=== PATIENT | female | born 1970 | race African-American/Black ===

== ENCOUNTER 2016-10-24 08:17 | Outpatient (CLI) | payer MEDICAID ==
[~2016-10-24 08:17] MED LIST: FERRIC CARBOXYMALTOSE 750 MG in NORMAL SALINE 250 ML IV PRN; NORMAL SALINE 250 ML IV PRN
[2016-10-24 08:53] VITALS: BP 126/76
== END 2016-10-24 09:30 | disposition home or self-care (01) ==
LOC: II 08:17 → 5TH 08:18 → II 09:30
PROVIDERS: ATTEND Internal Medicine
PROC: 3E033KZ Introduction of Other Diagnostic Substance into Peripheral Vein, Percutaneous Approach (ICD-10-PCS; principal; 2016-10-24)
DX: D50.9 Iron deficiency anemia, unspecified (principal); K90.9 Intestinal malabsorption, unspecified
CPT/HCPCS: 96365; J7050; J1439

== ENCOUNTER 2016-10-29 05:17 | Day surgery (SDC) | payer MEDICAID ==
[2016-10-25 11:06] LABS: HEMATOCRIT 34.6 % (36.0-47.0); HEMOGLOBIN 10.9 g/dL (12.0-15.5); HGB HCT DIFFERENCE -1.9; MEAN CORPUSCULAR HEMOGLOBIN 25.6 pg (27.0-33.4); MEAN CORPUSCULAR HGB CONC 31.5 g/dL (32.0-36.0); MEAN CORPUSCULAR VOLUME 81 fl (80-97); RED BLOOD COUNT 4.26 10^6/uL (3.72-5.28); RED CELL DISTRIBUTION WIDTH 17.4 % (11.5-14.0); WHITE BLOOD COUNT 6.2 10^3/uL (4.0-10.5)
[2016-10-25 11:14] LABS: APPEARANCE,URINE SLIGHTLY-CLOUDY; BILIRUBIN,URINE NEGATIVE (NEGATIVE); GLUCOSE, URINE NEGATIVE (NEGATIVE); KETONES,URINE NEGATIVE (NEGATIVE); LEUKOCYTE ESTERASE,URINE NEGATIVE (NEGATIVE); NITRITE,URINE NEGATIVE (NEGATIVE); PROTEIN,URINE NEGATIVE (NEGATIVE); URINE SPECIFIC GRAVITY 1.017; UROBILINOGEN,URINE NEGATIVE mg/dL (<2.0)
--- NOTE | 2016-10-25 11:15 | EKG REPORT ---
SEVERITY:- NORMAL ECG - SINUS RHYTHM : Confirmed by: Preet Escoto 25-Oct-2016 11:14:28
[2016-10-25 11:29] LABS: ALANINE AMINOTRANSFERASE 30 U/L (9-52); ALBUMIN 4.5 g/dL (3.5-5.0); ALKALINE PHOSPHATASE 81 U/L (38-126); ANION GAP 10 (5-19); ASPARTATE AMINO TRANSFERASE 19 U/L (14-36); BILIRUBIN,TOTAL 0.9 mg/dL (0.2-1.3); BLOOD UREA NITROGEN 11 mg/dL (7-20); CALCIUM 10.2 mg/dL (8.4-10.2); CARBON DIOXIDE 29 mmol/L (22-30); CHLORIDE 101 mmol/L (98-107); CREATININE RESULT 0.76 mg/dL (0.52-1.25); GLUCOSE 90 mg/dL (75-110); POTASSIUM 4.8 mmol/L (3.6-5.0); SODIUM 139.6 mmol/L (137-145); TOTAL PROTEIN 7.4 g/dL (6.3-8.2)
[~2016-10-29 05:17] MED LIST changes: +CLINDAMYCIN 900 MG/D5W RTU 50 ML IV PRN; -FERRIC CARBOXYMALTOSE 750 MG in NORMAL SALINE 250 ML IV PRN; +GENTAMICIN SULFATE 120 MG in DEXTROSE 5%-WATER 100 ML IV PRN; +LACTATED RINGERS 1000 ML IV PRN; +LIDOCAINE 0.5% INJ-PF (5 MG/ML) 50 ML SDV SUBCUT PRN; -NORMAL SALINE 250 ML IV PRN; +RINGERS SOLUTION,LACTATED 1,000 ML IV PRN
[2016-10-29] MEDS ORDERED: FENTANYL CITRATE INJ/PF 250 MCG/5 ML AMPULE ONE (06:44)
[2016-10-29] MEDS ORDERED: HYDROMORPHONE HCL INJ/PF 2 MG/ML AMPULE ONE (06:45)
[2016-10-29] MEDS ORDERED: MIDAZOLAM 2 MG/2 ML INJ ONE (06:45)
[2016-10-29] MEDS ORDERED: PROPOFOL INJ 200 MG/20 ML VIAL IV ONE (06:45)
[2016-10-29] MEDS ORDERED: PROMETHAZINE HCL INJ 25 MG/1 ML VIAL IV PRN ×2 (08:14)
[2016-10-29] MEDS ORDERED: DIPHENHYDRAMINE HCL 50 MG/ML VIAL IV PRN (08:14)
[2016-10-29] MEDS ORDERED: FENTANYL CITRATE INJ/PF 100 MCG/2 ML AMPUL IV PRN ×3 (08:14)
[2016-10-29] MEDS ORDERED: MORPHINE SULFATE 10 MG/ML INJ IV PRN ×2 (08:14→12:31)
[2016-10-29] MEDS ORDERED: MEPERIDINE HCL/PF INJ 25 MG/1 ML DISP.SYRIN IV PRN (08:14)
[2016-10-29] MEDS ORDERED: SUCCINYLCHOLINE CHLORIDE INJ 200 MG/10 ML VIAL ONE (09:15)
[2016-10-29] MEDS ORDERED: GLYCOPYRROLATE INJ 0.4 MG/2 ML VIAL ONE (09:15)
[2016-10-29] MEDS ORDERED: DEXAMETHASONE SOD PHOSPHATE INJ 4 MG/1 ML VIAL ONE (09:15)
[2016-10-29] MEDS ORDERED: VECURONIUM BROMIDE INJ 10 MG VIAL IV ONE (09:15)
[2016-10-29] MEDS ORDERED: METOCLOPRAMIDE HCL INJ/PF 10 MG/2 ML SDV ONE (09:15)
[2016-10-29] MEDS ORDERED: ONDANSETRON HCL INJ/PF 4 MG/2 ML SDV ONE (09:15)
[2016-10-29] MEDS ORDERED: NEOSTIGMINE METHYLSULFATE 10 MG/10 ML VIAL ONE (09:15)
[2016-10-29] MEDS ORDERED: LIDOCAINE 2% INJ-PF (20 MG/ML) 10 ML AMPUL ONE (09:15)
--- NOTE | 2016-10-29 11:33 | OPERATIVE REPORT E ---
Operative Report NAME: NATHALIA GUTIERREZ : 1970 AGE: 46Y DATE OF SURGERY: 10/29/2016 ROOM: PREOPERATIVE DIAGNOSES: 1. Abnormal uterine bleeding. 2. Anemia. 3. Symptomatic fibroids. 4. Chronic pelvic pain. POSTOPERATIVE DIAGNOSES: 1. Abnormal uterine bleeding. 2. Anemia. 3. Symptomatic fibroids. 4. Chronic pelvic pain. 5. Pelvic adhesive disease. OPERATION: Robotic-assisted total laparoscopic hysterectomy with bilateral salpingo-oophorectomy and lysis of adhesions. SURGEON: USMAN HARRELL M.D. GRAINING OPERATOR: Elma Velazquez, nurse first assist student. FINDINGS: A 20-week sized uterus that weighed approximately 380 grams. Multiple omental adhesions to the anterior side of the uterus. Thick uterosacral ligaments. Adhered ovaries more on the left than on the right. Fallopian tubes were both adhered as well. ESTIMATED BLOOD LOSS: 300 mL which were returned via Cell Saver. TISSUE REMOVED OR ALTERED: Specimens removed was the uterus, cervix, and bilateral fallopian tubes. PROCEDURE IN DETAIL: The patient was taken to the operating room, prepared and draped in a normal sterile fashion in dorsal lithotomy position in [facility] under sterile conditions. A sterile Matamoros was placed to gravity, and sterile speculum was then placed in the vagina. The cervix was prepped with Betadine and grasped on the anterior lip with a single-tooth tenaculum. The uterus was then sounded and dilated to accommodate a large VCare. This was placed without difficulty for uterine manipulation. The tenaculum was removed from the vagina before gloves were changed. Attention was then turned to the upper portion of the case. A skin incision was made approximately 2 cm above the umbilicus to accommodate the GelPoint, and a direct cutdown method was used to enter the peritoneal cavity without difficulty. The GelPoint was then placed in a normal fashion, and the camera port and air seal community relations assistant port was placed through the GelPoint. The camera was introduced, and under direct visualization two 5 mm ports were placed approximately 10 cm on either side of the umbilicus. The robot was docked. The monopolar scissors and the vessel sealer were placed in a normal fashion. The bowel was swept away using careful use of the instruments. The omentum was then dissected from the anterior side of the uterus using the monopolar scissors as needed. Once the ovary was able to be visualized and the fallopian tube was able to be visualized after extensive lysis of adhesions of the left pelvic sidewall, the fallopian tube was then removed using the vessel sealer and the monopolar scissors in conjunction. This was removed from the pelvis through the community relations assistant port. The utero-ovarian ligament was then transected using the vessel sealer until we reached the round ligament. The round ligament was transected as well, and the uterine arteries were transected with the vessel sealer until we could see the bladder reflection. We then repeated on the right portion of the uterus, removing the fallopian tube in a similar fashion and again dissecting the utero-ovarian ligament and the round ligament as well and transecting the uterine arteries using the vessel sealer. The monopolar scissors were used to create the bladder flap, and the bladder was carefully dissected away from the cervix and the lower uterine segment. The uterine arteries were continually coagulated and transected using the vessel sealer until the VCare could be located through the vaginal mucosa beginning on the anterior side as this was presenting itself most readily. The colpotomy was begun using the monopolar scissors and circumferentially transected using the monopolar cervix all the way around the cervix until the specimen was freed. With the specimen being large, we began some bivalving of the uterus using the monopolar scissors down the center of the uterus to help with compression effect with vaginal removal. Once this was completed, I then re-gloved using a sterile pair of gloves and assisting my community relations assistant with removal of the uterus through the vagina, and this was done with some difficulty but was able to remove using some careful manipulations of the uterus without complete bivalve. I then scrubbed again and reset back to the console and closed the vaginal cuff using a V-lock and the Hollis needle jitney driver as well as a Prograf. Hemostasis was maintained throughout with coagulation as needed. The peritoneal cavity was reinspected and found to be hemostatic. The ureters were inspected at the beginning of the case and again at this time and found to be peristalsing with no signs of hydroureter noted. Another copious irrigation and inspection of the peritoneal cavity left us feeling we were hemostatic and the ureters were well intact. The robot was undocked, and the trocars were removed under direct visualization. The GelPoint was removed. In the GelPoint incision site the fascia was closed with #0-Vicryl in a running manner. The subcutaneous layer was also closed with a plain catgut to close the space and all 3 incision sites were closed with 4-0 Vicryl. The patient tolerated the procedure well. Sponge, lap, and needle counts were correct x2. The Matamoros catheter was removed in the OR, and she was taken to PACU in stable condition. DICTATING PHYSICIAN: USMAN HARRELL M.D. [id number] PHY#: [id number] ID: [id number] JOB#: [id number] ACCT: [id number] cc:USMAN HARRELL M.D. >
[2016-10-29] MEDS ORDERED: RINGERS SOLUTION,LACTATED 1,000 ML IV PRN (12:32)
[2016-10-29] MEDS ORDERED: OXYCODONE-ACETAMINOPHEN 5-325 MG TABLET PO PRN (12:38)
[2016-10-29] MEDS ORDERED: MORPHINE SULFATE 10 MG/ML INJ ONE (12:52)
[2016-10-29] MEDS ORDERED: ACETAMINOPHEN 100 ML IV ONE (14:00)
[2016-10-29] MEDS: KETOROLAC TROMETHAMINE INJ/PF 30 MG/1 ML SDV IV SCH ×2 (14:20→21:21)
[2016-10-29 21:29] LABS: HEMATOCRIT 30.3 % (36.0-47.0); HEMOGLOBIN 9.2 g/dL (12.0-15.5); HGB HCT DIFFERENCE -2.7; MEAN CORPUSCULAR HEMOGLOBIN 24.9 pg (27.0-33.4); MEAN CORPUSCULAR HGB CONC 30.3 g/dL (32.0-36.0); MEAN CORPUSCULAR VOLUME 82 fl (80-97); RED BLOOD COUNT 3.69 10^6/uL (3.72-5.28); RED CELL DISTRIBUTION WIDTH 18.1 % (11.5-14.0); WHITE BLOOD COUNT 14.5 10^3/uL (4.0-10.5)
[2016-10-29] MEDS ORDERED: NORMAL SALINE 1000 ML 1,000 ML IV ONE (21:45)
[2016-10-29] MEDS ORDERED: ACETAMINOPHEN 325 MG TABLET PO ONE (21:45)
[2016-10-29 21:47] LABS: BASOPHILS % (MANUAL) 0 % (0-2); EOSINOPHILS % (MANUAL) 0 % (0-6); LYMPHOCYTES % (MANUAL) 1 % (13-45); TOTAL CELLS COUNTED 100
[2016-10-29 21:50] LABS: ANISOCYTOSIS 1+; OVALOCYTES SLIGHT; POIKILOCYTOSIS SLIGHT
[2016-10-29] MEDS ORDERED: AMPICILLIN SOD/SULBACTAM 3 GM VIAL IV PRN (22:54)
[2016-10-29] MEDS ORDERED: AMPICILLIN SODIUM/SULBACTAM NA 3 GM in NORMAL SALINE 100 ML IV ONE (23:00)
[2016-10-29] MEDS ORDERED: CLINDAMYCIN 900 MG/D5W RTU 50 ML IV SCH (23:45)
[2016-10-30 05:38] LABS: HEMATOCRIT 27.5 % (36.0-47.0); HEMOGLOBIN 8.7 g/dL (12.0-15.5); HGB HCT DIFFERENCE -1.4; MEAN CORPUSCULAR HEMOGLOBIN 25.9 pg (27.0-33.4); MEAN CORPUSCULAR HGB CONC 31.6 g/dL (32.0-36.0); MEAN CORPUSCULAR VOLUME 82 fl (80-97); RED BLOOD COUNT 3.36 10^6/uL (3.72-5.28); RED CELL DISTRIBUTION WIDTH 18.3 % (11.5-14.0); WHITE BLOOD COUNT 13.8 10^3/uL (4.0-10.5)
[2016-10-30] MEDS ORDERED: AMPICILLIN SODIUM/SULBACTAM NA 3 GM in NORMAL SALINE 100 ML IV SCH (06:00)
[2016-10-30] MEDS ORDERED: CLINDAMYCIN 900 MG/D5W RTU 50 ML IV SCH (06:00)
[2016-10-30] MEDS ORDERED: INFLUENZA ADLT QUAD (36MOS+) 2016-17 VAC 0.5 ML SYR IM PRN (06:32)
[2016-10-30] MEDS: KETOROLAC TROMETHAMINE INJ/PF 30 MG/1 ML SDV IV SCH (06:44)
[2016-10-30] MEDS ORDERED: RINGERS SOLUTION,LACTATED 1,000 ML IV PRN (07:40)
[2016-10-30 08:32] VITALS: BP 114/66
--- NOTE | 2016-10-30 09:11 | PDOC DISCHARGE SUMMARY ---
General - Admit/Disc Date/PCP Admission Date/Primary Care Provider: JEISON GAUTAM MD Discharge Date: 10/30/16 - Discharge Diagnosis (1) Abnormal uterine bleeding Is this a current diagnosis for this admission?: Yes (2) Pelvic adhesive disease Is this a current diagnosis for this admission?: Yes (3) Anemia Is this a current diagnosis for this admission?: Yes (4) Leiomyoma of body of uterus Is this a current diagnosis for this admission?: Yes - Additional Information Home Medications: Ferrous Sulfate [Iron] 325 mg PO TID 03/24/15 Multivitamin [Multivitamins] 1 tab PO DAILY 03/24/15 Medroxyprogesterone Acet [Provera 10 Mg Tablet] 10 mg PO DAILY 7 Days 08/08/16 Metronidazole 500 mg PO BID 7 Days 08/08/16 Hydrocodone Bit/Acetaminophen [Hydrocodon-Acetaminophen 5-325] 1 each PO Q4HP PRN #15 tablet 08/15/16 History of Present Illness History of Present Illness: NATHALIA GUTIERREZ is a 46 year old female Hospital Course Hospital Course: s/p RATLH w/ B/L salpingectomy and lysis of adhesions. Doing well. Indicates she feels much better. Has had adequate UOP. Tolerating regular diet Physical Exam - Physical Exam Vital Signs: Temp Pulse Resp BP Pulse Ox 98.6 F 98 18 114/66 100 10/30/16 08:22 10/30/16 08:22 10/30/16 08:22 10/30/16 08:22 10/30/16 08:22 Intake & Output 10/29/16 10/30/16 10/31/16 06:59 06:59 06:59 Intake Total 0 3530 Output Total 2500 Balance 0 1030 General appearance: PRESENT: no acute distress, cooperative GI/Abdominal exam: PRESENT: normal bowel sounds, soft, other - incisions c/d/ intact and healing well Extremities exam: PRESENT: full ROM Musculoskeletal exam: PRESENT: ambulatory Result Laboratory Results: 10/30/16 05:24 10/25/16 10:24 10/29/16 10/30/16 21:11 05:24 WBC 14.5 H 13.8 H RBC 3.69 L 3.36 L Hgb 9.2 L 8.7 L Hct 30.3 L 27.5 L MCV 82 82 MCH 24.9 L 25.9 L MCHC 30.3 L 31.6 L RDW 18.1 H 18.3 H Plt Count 275 238 Seg Neutrophils % Not Reportable Lymphocytes % Not Reportable Monocytes % Not Reportable Eosinophils % Not Reportable Basophils % Not Reportable Absolute Neutrophils Not Reportable Absolute Lymphocytes Not Reportable Absolute Monocytes Not Reportable Absolute Eosinophils Not Reportable Absolute Basophils Not Reportable Plan Discharge Plan: discharge home. strict precautions given for post operative care. keep f/u with Dr. Hadley as scheduled Time Spent: Less than 30 Minutes
[2016-10-30] MEDS ORDERED: IBUPROFEN 800 MG TABLET PO PRN (12:00)
== END 2016-10-30 10:05 | disposition home or self-care (01) ==
LOC: OROUT 05:17 → 2N 12:44 → OROUT 10-30 10:05
PROVIDERS: ATTEND Obstetrics & Gynecology
PROC: 0UTC4ZZ Resection of Cervix, Percutaneous Endoscopic Approach (ICD-10-PCS; 2016-10-29)
PROC: 0UT74ZZ Resection of Bilateral Fallopian Tubes, Percutaneous Endoscopic Approach (ICD-10-PCS; 2016-10-29)
PROC: 8E0W4CZ Robotic Assisted Procedure of Trunk Region, Percutaneous Endoscopic Approach (ICD-10-PCS; 2016-10-29)
PROC: 0UT94ZZ Resection of Uterus, Percutaneous Endoscopic Approach (ICD-10-PCS; principal; 2016-10-29 07:30)
DX: N93.8 Other specified abnormal uterine and vaginal bleeding (principal); K66.0 Peritoneal adhesions (postprocedural) (postinfection); D25.9 Leiomyoma of uterus, unspecified; G89.29 Other chronic pain; D64.9 Anemia, unspecified; R10.2 Pelvic and perineal pain; R01.1 Cardiac murmur, unspecified; Z88.0 Allergy status to penicillin; Z79.1 Long term (current) use of non-steroidal anti-inflammatories (NSAID); Z79.899 Other long term (current) drug therapy
CPT/HCPCS: 58573; S2900; 36415; 80053; 81001; 81025; 840; 85025; 85027; 86850; 86900; 86901; 88307; 93005; 93010; J0131; J0330; J1100; J1170; J1580; J1885; J2250; J2270; J2405; J2704; J2765; J3010; J3490; J7030

== ENCOUNTER 2016-11-02 08:06 | Outpatient (CLI) | payer MEDICAID ==
[~2016-11-02 08:06] MED LIST changes: -CLINDAMYCIN 900 MG/D5W RTU 50 ML IV PRN; +FERRIC CARBOXYMALTOSE 750 MG in NORMAL SALINE 250 ML IV PRN; -GENTAMICIN SULFATE 120 MG in DEXTROSE 5%-WATER 100 ML IV PRN; -LACTATED RINGERS 1000 ML IV PRN; -LIDOCAINE 0.5% INJ-PF (5 MG/ML) 50 ML SDV SUBCUT PRN; +NORMAL SALINE 250 ML IV PRN; -RINGERS SOLUTION,LACTATED 1,000 ML IV PRN
[2016-11-02] MEDS ORDERED: DIPHENHYDRAMINE HCL 50 MG/ML VIAL ONE (09:13)
[2016-11-02 09:51] VITALS: BP 130/77
== END 2016-11-02 10:15 | disposition home or self-care (01) ==
LOC: II 08:06 → 5TH 08:07 → II 10:15
PROVIDERS: ATTEND Internal Medicine
PROC: 3E033GC Introduction of Other Therapeutic Substance into Peripheral Vein, Percutaneous Approach (ICD-10-PCS; principal; 2016-11-02)
DX: D50.9 Iron deficiency anemia, unspecified (principal); K90.9 Intestinal malabsorption, unspecified
CPT/HCPCS: 96365; J1200; J7050; J1439

== ENCOUNTER 2016-11-05 16:18 | Emergency (ER) | payer MEDICAID ==
--- NOTE | 2016-11-05 17:35 | ER Document Report ---
ED Medical Screen (RME) - General Chief Complaint: Fever Stated Complaint: ABDOMINAL PAIN/FEVER Mode of Arrival: Ambulatory Information source: Patient Notes: 46-year-old female presents to the emergency department complaining of chills and lower abdominal pain over the last 2 days. Reports had hysterectomy 1 week ago. Denies vaginal bleeding or discharge I have greeted and performed a rapid initial assessment of this patient. A comprehensive ED assessment and evaluation of the patient, analysis of test results and completion of the medical decision making process will be conducted by additional ED providers. TRAVEL OUTSIDE OF THE [place] IN LAST 30 DAYS: No - Related Data Allergies/Adverse Reactions: Penicillins Allergy (Severe, Verified 11/05/16 17:17) Hives ferric carboxymaltose [From Injectafer] Allergy (Mild, Verified 11/05/16 17:17) chest tightness iron dextran complex Adverse Reaction (Mild, Verified 11/05/16 17:17) Past Medical History - Social History Chew tobacco use (# tins/day): No Frequency of alcohol use: Occasional Drug Abuse: None - Past Medical History Cardiac Medical History: Denies: Hx Coronary Artery Disease, Hx Heart Attack, Hx Hypertension Pulmonary Medical History: Denies: Hx Asthma, Hx Bronchitis, Hx COPD, Hx Pneumonia Neurological Medical History: Denies: Hx Cerebrovascular Accident, Hx Seizures Renal/ Medical History: Reports: Hx Ovarian Cysts. Denies: Hx Peritoneal Dialysis GI Medical History: Reports: Hx Gastroesophageal Reflux Disease, Hx Colonoscopy Past Surgical History: Reports: Hx Dilation and Curettage, Hx Gynecologic Surgery - Uterine polyps removed - Immunizations Hx Diphtheria, Pertussis, Tetanus Vaccination: Yes Physical Exam - Vital signs Vitals: Temp Pulse Resp BP Pulse Ox 99.5 F 118 H 16 141/77 H 98 11/05/16 17:14 11/05/16 17:14 11/05/16 17:14 11/05/16 17:14 11/05/16 17:14 - General General appearance: Appears well, Alert In distress: None - Respiratory Respiratory status: No respiratory distress Course - Vital Signs Vital signs: Temp Pulse Resp BP Pulse Ox 99.5 F 118 H 16 141/77 H 98 11/05/16 17:14 11/05/16 17:14 11/05/16 17:14 11/05/16 17:14 11/05/16 17:14
[2016-11-05 17:51] LABS: ABSOLUTE LYMPHOCYTES (AUTO) 1.4 10^3/uL (0.5-4.7); ABSOLUTE MONOCYTES (AUTO) 1.9 10^3/uL (0.1-1.4); ABSOLUTE NEUT (AUTO) 13.2 10^3/uL (1.7-8.2); APPEARANCE,URINE SLIGHTLY-CLOUDY; BASOPHILS % (AUTO) 0.2 % (0-2); BILIRUBIN,URINE NEGATIVE (NEGATIVE); EOSINOPHILS % (AUTO) 0.2 % (0-6); GLUCOSE, URINE NEGATIVE (NEGATIVE); HEMATOCRIT 31.4 % (36.0-47.0); HEMOGLOBIN 9.8 g/dL (12.0-15.5); KETONES,URINE NEGATIVE (NEGATIVE); LEUKOCYTE ESTERASE,URINE NEGATIVE (NEGATIVE); LYMPHOCYTES % (AUTO) 8.3 % (13-45); MEAN CORPUSCULAR HEMOGLOBIN 25.6 pg (27.0-33.4); MEAN CORPUSCULAR VOLUME 83 fl (80-97); MONOCYTES % (AUTO) 11.3 % (3-13); NITRITE,URINE NEGATIVE (NEGATIVE); PROTEIN,URINE NEGATIVE (NEGATIVE); RED BLOOD COUNT 3.81 10^6/uL (3.72-5.28); RED CELL DISTRIBUTION WIDTH 19.5 % (11.5-14.0); URINE SPECIFIC GRAVITY 1.015; WHITE BLOOD COUNT 16.5 10^3/uL (4.0-10.5)
[2016-11-05 18:01] LABS: ALANINE AMINOTRANSFERASE 27 U/L (9-52); ALKALINE PHOSPHATASE 81 U/L (38-126); ANION GAP 14 (5-19); ASPARTATE AMINO TRANSFERASE 19 U/L (14-36); BILIRUBIN,TOTAL 1.3 mg/dL (0.2-1.3); BLOOD UREA NITROGEN 7 mg/dL (7-20); CALCIUM 9.3 mg/dL (8.4-10.2); CARBON DIOXIDE 26 mmol/L (22-30); CHLORIDE 98 mmol/L (98-107); CREATININE RESULT 0.74 mg/dL (0.52-1.25); GLUCOSE 105 mg/dL (75-110); POTASSIUM 4.2 mmol/L (3.6-5.0); SODIUM 137.8 mmol/L (137-145); TOTAL PROTEIN 7.1 g/dL (6.3-8.2)
[2016-11-05] MEDS ORDERED: NORMAL SALINE 1000 ML 1,000 ML IV ONE (19:02)
--- NOTE | 2016-11-05 19:13 | ER Document Report ---
ED General <NATALIA LLAMAS - Last Filed: 11/05/16 21:40> - General Mode of Arrival: Ambulatory Information source: Patient TRAVEL OUTSIDE OF THE [place] IN LAST 30 DAYS: No - HPI Patient complains to provider of: Fever and Body Aches Onset: Yesterday Associated symptoms: Other - see above <VIJAY GAUTAM - Last Filed: 11/05/16 21:45> - General Chief Complaint: Fever Stated Complaint: ABDOMINAL PAIN/FEVER Notes: 46 year old female with history of a hysterectomy (10/29/2016; secondary to heavy menses) presents to the ED complaining of a fever (100.9F) and generalized body aches that started last night. Patient additionally reports of a cough, sneezing, chills, diarrhea, and a decreased appetite. Patient denies dysuria, burning with urination, or hematuria. Patient states that she has been trying to move more since the surgery and is attributing the body ache to this. Patient is currently on 5mg of Percocet and Clindamycin. Patient also reports taking stool softeners. Patient denies history of pneumonia or getting the flu shot. Patient's OB is Dr. Harrell. (VIJAY GAUTAM) - Related Data Allergies/Adverse Reactions: Penicillins Allergy (Severe, Verified 11/05/16 17:17) Hives ferric carboxymaltose [From Injectafer] Allergy (Mild, Verified 11/05/16 17:17) chest tightness iron dextran complex Adverse Reaction (Mild, Verified 11/05/16 17:17) Past Medical History - General Information source: Patient - Social History Smoking Status: Never Smoker Chew tobacco use (# tins/day): No Frequency of alcohol use: Occasional Drug Abuse: None Family History: Other - Mother with DVT. Patient has suicidal ideation: No Patient has homicidal ideation: No Renal/ Medical History: Reports: Hx Kidney Stones, Hx Ovarian Cysts. Denies: Hx Peritoneal Dialysis GI Medical History: Reports: Hx Gastroesophageal Reflux Disease, Hx Colonoscopy Past Surgical History: Reports: Hx Dilation and Curettage, Hx Genitourinary Surgery - D&C, Hx Gynecologic Surgery - Uterine polyps removed, Hx Hysterectomy - 10/29/2016 - Immunizations Hx Diphtheria, Pertussis, Tetanus Vaccination: Yes <VIJAY GAUTAM - Last Filed: 11/05/16 21:45> Review of Systems - Review of Systems Constitutional: See HPI, Chills, Fever - 100.9F EENT: No symptoms reported Cardiovascular: No symptoms reported Respiratory: No symptoms reported Gastrointestinal: See HPI, Diarrhea, Poor appetite Genitourinary: No symptoms reported. denies: Burning, Dysuria, Hematuria Female Genitourinary: No symptoms reported Musculoskeletal: No symptoms reported Skin: No symptoms reported Hematologic/Lymphatic: No symptoms reported Neurological/Psychological: No symptoms reported -: Yes All other systems reviewed and negative <VIJAY GAUTAM - Last Filed: 11/05/16 21:45> Physical Exam <NATALIA LLAMAS - Last Filed: 11/05/16 21:40> - Vital signs Interpretation: Tachycardic - mild - General General appearance: Alert In distress: None - HEENT Head: Normocephalic, Atraumatic Eyes: Normal Extraocular movements intact: Yes Pupils: PERRL - Respiratory Respiratory status: No respiratory distress Breath sounds: Normal - Cardiovascular Rhythm: Regular, Tachycardia Heart sounds: Normal auscultation - Abdominal Inspection: Normal, Healed incision Distension: No distension Bowel sounds: Normal Tenderness: Nontender - Back Back: Normal - Extremities General upper extremity: Normal inspection, Normal ROM General lower extremity: Normal inspection, Normal ROM - Neurological Neuro grossly intact: Yes Cognition: Normal Orientation: AAOx4 [place] Coma Scale Eye Opening: Spontaneous [place] Coma Scale Verbal: Oriented [place] Coma Scale Motor: Obeys Commands [place] Coma Scale Total: 15 Speech: Normal - Psychological Associated symptoms: Normal affect, Normal mood - Skin Skin Temperature: Warm Skin Moisture: Dry Skin Color: Normal <VIJAY GAUTAM - Last Filed: 11/05/16 21:45> - Vital signs Vitals: Temp Pulse Resp BP Pulse Ox 99.5 F 118 H 16 141/77 H 98 11/05/16 17:14 11/05/16 17:14 11/05/16 17:14 11/05/16 17:14 11/05/16 17:14 (NATALIA LLAMAS) (VIJAY GAUTAM) Course - Laboratory Result Diagrams: 11/05/16 17:30 11/05/16 17:30 <NATALIA LLAMAS - Last Filed: 11/05/16 21:40> - Laboratory Result Diagrams: 11/05/16 17:30 11/05/16 17:30 - Consults Dr. Harrell Time consulted: 21:36 <VIJAY GAUTAM - Last Filed: 11/05/16 21:45> - Re-evaluation Re-evalutation: 11/05/16 21:38 I personally performed the services described in the documentation, reviewed and edited the documentation which was dictated to my scribe in my presence, and it accurately records my words and actions. presents to the emergency department with a chief complaint of body aches chills and fever of 100.9 at home. Patient is status post partial abdominal hysterectomy Dr. Harrell last Saturday secondary to heavy menses. Ovaries were left according to the patient for the past day or so she's Been feeling achy little bit of a mild nonproductive cough MAXIMUM TEMPERATURE at home of 100.9. She has been taking the Percocet every 6 hours and clindamycin. She reports somewhat normal appetite but has had a little bit of diarrhea. On initial examination temperature is 99.5 orally she slightly tachycardic at 118 well- appearing nontoxic in no acute distress. HEENT is normal heart lungs are negative wound is clean dry and intact with no palpable tenderness drainage from the incision belly soft no guarding rebound or rigidity on serial abdominal examination. Chest x-ray is negative for acute pneumonia no urinary tract infection negative for the flu does have a slightly elevated white count at 16.5. Patient is well-appearing nontoxic stable to be discharged at this time. I did call her TECHNICAL REP physician that did her hysterectomy Dr. Harrell spoke with her wasn't anything additional she wanted me to do at this point other than have her follow-up in the office this week and discussed significant reasons for ED return sooner. Baseline anemia and is a Jehovah witness so did not want blood after surgery according to Dr. Harrell (NATALIA LLAMAS) - Vital Signs Vital signs: Temp Pulse Resp BP Pulse Ox 99.5 F 121 H 22 H 141/77 H 99 11/05/16 17:14 11/05/16 19:06 11/05/16 19:06 11/05/16 17:14 11/05/16 19:06 (NATALIA LLAMAS) (VIJAY GAUTAM) - Laboratory Laboratory results interpreted by me: 11/05/16 11/05/16 17:30 17:30 WBC 16.5 H Hgb 9.8 L Hct 31.4 L MCH 25.6 L MCHC 31.0 L RDW 19.5 H Seg Neutrophils % 80.0 H Lymphocytes % 8.3 L Absolute Neutrophils 13.2 H Absolute Monocytes 1.9 H Urine Urobilinogen 2.0 H Urine Ascorbic Acid 40 H (NATALIA LLAMAS) (VIJAY GAUTAM) - Consults Dr. Harrell Reason for consultation: 11/05/16 21:36 Patient was discussed with Dr. Harrell and agrees to see the patient in the clinic later this week. (VIJAY GAUTAM) Discharge <NATALIA LLAMAS - Last Filed: 11/05/16 21:40> <VIJAY GAUTAM - Last Filed: 11/05/16 21:45> - Discharge Clinical Impression: post op hysterectomy Diarrhea Qualifiers: Diarrhea type: unspecified type Qualified Code(s): R19.7 - Diarrhea, unspecified Condition: Stable Disposition: HOME, SELF-CARE Additional Instructions: Fever Fever is the body's reaction to infection. Fever can also occur with illnesses that create fever-producing substances in the body. By itself, fever is not harmful. It helps the body fight invading germs. We are more concerned with: (1) What's causing the fever? (2) How can we keep you more comfortable until the fever goes away? Early in an illness, symptoms are often so vague that a diagnosis can't be made. If the doctor hasn't identified a clear cause for your fever, you will probably develop new symptoms within the next two days. Contact the doctor if you develop severe worsening headache, rash, chest pain, cough with yellow or green sputum, difficulty breathing, abdominal pain, or other new symptoms. There is no reason to treat a fever if you're comfortable. If the fever is causing aches, headache, and fatigue, you can treat it with ibuprofen (Advil , Nuprin, etc) or acetaminophen (Tylenol). Follow the directions on the bottle. Get plenty of liquids (three quarts per day). Rest. Physical work or sports will raise the temperature higher and make you feel much worse. Dress lightly. If you're chilling, this means the temperature is trying to go higher. Take ibuprofen or acetaminophen. When you feel sweaty and "feverish" the temperature is coming down. If the fever doesn't go away within two days or if you become more ill, call the doctor or return at once for re-examination. Diarrhea Diarrhea means frequent, watery stools. There are many causes. Any problem that keeps the intestinal tract from absorbing water from the stool can lead to diarrhea. A sudden new diarrhea problem is usually caused by a virus, food sensitivity, toxic bacteria, or drugs. In this case, we expect the problem to go away soon. Testing is done only if you seem seriously ill from the diarrhea. If you have chronic diarrhea, or diarrhea that keeps coming back, we need to find out why. Chronic diarrhea can be due to inflammation of the bowels such as Crohn's disease or ulcerative colitis, food sensitivity such as intolerance to lactose or wheat protein, irritable bowel syndrome, and other problems. If your diarrhea is a significant problem but it's not clear why you have it, we' ll refer you to a specialist for further testing. During an episode of diarrhea, drink small amounts (two to six ounces) of clear liquids (soft drinks, sport drinks, herb teas, broth, etc). Take fluids frequently to prevent dehydration. It's usually not a problem to take mild anti- diarrhea medication such as Kaopectate or Pepto-Bismol. As the diarrhea eases, advance to small amounts of bland food (mashed potato, toast) for 24 hours. Call the physician if blood appears in your vomit or stool, if vomiting lasts longer than 24 hours, if the abdominal pain worsens or becomes localized to one area, if you develop high fever, or if you become lightheaded and weak. Referrals: JEISON GAUTAM MD [Primary Care Provider] - Follow up as needed (In 2-3 days return for increasing worsening or new symptoms) USMAN HARRELL MD [ACTIVE STAFF] - Follow up in 3-5 days (Postop follow-up this week return for increasing worsening or new symptoms) Scribe Documentation - Scribe Written by Josseline:: Josseline Wakefield, 11/05/[id number] acting as scribe for :: Torey <VIJAY GAUTAM - Last Filed: 11/05/16 21:45>
[2016-11-05 21:54] VITALS: BP 144/79
== END 2016-11-05 21:58 | disposition home or self-care (01) ==
LOC: ER 16:18
DX: R19.7 Diarrhea, unspecified (principal); R50.9 Fever, unspecified; R10.9 Unspecified abdominal pain; R05 Cough; R06.7 Sneezing; Z79.899 Other long term (current) drug therapy
CPT/HCPCS: 99283; 96360; 36415; 85025; 80053; 81001; 87804; 71020; J7030

== ENCOUNTER 2017-02-17 06:12 | Emergency (ER) | payer SELFPAY ==
[2017-02-17] MEDS ORDERED: DIPHENHYDRAMINE HCL 50 MG CAPSULE PO ONE (07:44)
[2017-02-17] MEDS ORDERED: IBUPROFEN 800 MG TABLET PO ONE (07:44)
--- NOTE | 2017-02-17 07:44 | ER Document Report ---
ED General - General Chief Complaint: Sinus Pain Stated Complaint: FRONT HEAD PAIN,BLURRY VISION,HARD TO BREATH Time Seen by Provider: 02/17/17 07:43 Mode of Arrival: Ambulatory Information source: Patient Notes: Patient is a 46-year-old female with a history of headaches, migraines presents to the ER today for all of her head pain, light sensitivity TRAVEL OUTSIDE OF THE [place] IN LAST 30 DAYS: No - Related Data Allergies/Adverse Reactions: Penicillins Allergy (Severe, Verified 11/05/16 17:17) Hives ferric carboxymaltose [From Injectafer] Allergy (Mild, Verified 11/05/16 17:17) chest tightness iron dextran complex Adverse Reaction (Mild, Verified 11/05/16 17:17) Past Medical History - Social History Smoking Status: Current Every Day Smoker Family History: Other - Mother with DVT. Patient has suicidal ideation: No Patient has homicidal ideation: No - Past Medical History Cardiac Medical History: Denies: Hx Coronary Artery Disease, Hx Heart Attack, Hx Hypertension Pulmonary Medical History: Denies: Hx Asthma, Hx Bronchitis, Hx COPD, Hx Pneumonia Neurological Medical History: Denies: Hx Cerebrovascular Accident, Hx Seizures Renal/ Medical History: Reports: Hx Kidney Stones, Hx Ovarian Cysts. Denies: Hx Peritoneal Dialysis GI Medical History: Reports: Hx Gastroesophageal Reflux Disease, Hx Colonoscopy Past Surgical History: Reports: Hx Dilation and Curettage, Hx Genitourinary Surgery - D&C, Hx Gynecologic Surgery - Uterine polyps removed, Hx Hysterectomy - 10/29/2016 - Immunizations Hx Diphtheria, Pertussis, Tetanus Vaccination: Yes Review of Systems - Review of Systems Constitutional: No symptoms reported EENT: No symptoms reported Cardiovascular: No symptoms reported Respiratory: No symptoms reported Gastrointestinal: No symptoms reported Genitourinary: No symptoms reported Female Genitourinary: No symptoms reported Musculoskeletal: No symptoms reported Skin: No symptoms reported Hematologic/Lymphatic: No symptoms reported Neurological/Psychological: See HPI Physical Exam - Vital signs Vitals: Temp Pulse Resp BP Pulse Ox 98.2 F 87 16 136/82 H 98 02/17/17 06:39 02/17/17 06:39 02/17/17 06:39 02/17/17 06:39 02/17/17 06:39 - Notes Notes: PHYSICAL EXAMINATION: GENERAL: Well-appearing, smiling and in no acute distress. HEAD: Atraumatic, normocephalic. EYES: Pupils equal round and reactive to light, extraocular movements intact, sclera anicteric, conjunctiva are normal. ENT: ear canals without erythema or foreign body, TMs pearly delarosa with good bony landmarks, nares patent, oropharynx clear without exudates. Moist mucous membranes. maxillary and frontal sinuses nontender to palpation NECK: Normal range of motion, supple without lymphadenopathy LUNGS: CTAB and equal. No wheezes rales or rhonchi. HEART: Regular rate and rhythm without murmurs ABDOMEN: Soft, no tenderness. No guarding, no rebound BACK: no vertebral tenderness, normal ROM GI/: no CVA tenderness EXTREMITIES: Normal range of motion, no pitting edema. No cyanosis. NEUROLOGICAL: Cranial nerves grossly intact. Normal sensory/motor exams. PSYCH: Normal mood, normal affect. SKIN: Warm, Dry, normal turgor, no rashes or lesions noted Course - Re-evaluation Re-evalutation: 02/17/17 09:01 Patient actually looks incredibly well, smiling, sitting up with the lights on in the room, does not look like she is in any pain at all, Motrin and Benadryl improved her headache significantly. I will discharge her with normal vital signs and visual acuity the same as whenever she does not wear her glasses as she was not wearing her glasses today. - Vital Signs Vital signs: Temp Pulse Resp BP Pulse Ox 98.6 F 84 20 138/78 H 99 02/17/17 09:15 02/17/17 09:15 02/17/17 09:15 02/17/17 09:15 02/17/17 09:15 Discharge - Discharge Clinical Impression: Headache Qualifiers: Headache type: unspecified Headache chronicity pattern: unspecified pattern Intractability: not intractable Qualified Code(s): R51 - Headache Condition: Stable Disposition: HOME, SELF-CARE Additional Instructions: Return immediately for any new or worsening symptoms. Follow up with primary care provider, call tomorrow to make followup appointment. Prescriptions: Ketorolac Tromethamine [Toradol 10 mg Tablet] 10 mg PO Q6HP PRN #20 tablet PRN Reason: Referrals: JEISON GAUTAM MD [Primary Care Provider] - Follow up as needed
[2017-02-17 09:23] VITALS: BP 138/78
== END 2017-02-17 09:23 | disposition home or self-care (01) ==
LOC: ER 06:12
DX: R51 Headache (principal); H53.149 Visual discomfort, unspecified; F17.200 Nicotine dependence, unspecified, uncomplicated; Z88.0 Allergy status to penicillin; Z88.8 Allergy status to other drugs, medicaments and biological substances; Z86.69 Personal history of other diseases of the nervous system and sense organs
CPT/HCPCS: 99284

== ENCOUNTER 2018-12-12 13:01 | Emergency (ER) | payer SELFPAY ==
[2018-12-12 13:07] VITALS: BP 152/78
[2018-12-12] MEDS ORDERED: CETIRIZINE 10 MG TABLET PO ONE (13:46)
[2018-12-12] MEDS ORDERED: BUTALB/ACETAMINOPHEN/CAFFEINE 1 TAB EACH PO ONE (13:46)
--- NOTE | 2018-12-12 13:54 | ER Document Report ---
HPI - HPI Patient complains to provider of: Sinus congestion, headache Time Seen by Provider: 12/12/18 13:23 Onset: Last week Onset/Duration: Gradual Quality of pain: Achy Pain Level: 4 Context: Patient presents complaining of sinus congestion, sneezing and frontal headache pain. Patient suspects that she may have allergies. Patient also complains of dental pain from a broken tooth. Patient denies any facial swelling. Patient without any difficulty breathing. Associated Symptoms: Headache, Rhinnorhea, Sinus pain/drainage, Other - Dental pain, congestion. denies: Nonproductive cough, Productive cough, Fever Exacerbated by: Denies Relieved by: Denies Similar symptoms previously: Yes Recently seen / treated by doctor: No - ROS ROS below otherwise negative: Yes Systems Reviewed and Negative: Yes All other systems reviewed and negative - CONSTITUTIONAL Constitutional: DENIES: Fever, Chills - EENT EENT: REPORTS: Nasal Drainage-Clear, Congestion. DENIES: Sore Throat, Ear Pain, Eye problems - NEURO Neurology: REPORTS: Headache. DENIES: Vision blurred, Dizzinesss / Vertigo - CARDIOVASCULAR Cardiovascular: DENIES: Chest pain - RESPIRATORY Respiratory: DENIES: Trouble Breathing, Coughing - GASTROINTESTINAL Gastrointestinal: DENIES: Nausea, Patient vomiting - REPRODUCTIVE Reproductive: DENIES: : - MUSCULOSKELETAL Musculoskeletal: DENIES: Extremity pain, Back Pain, Neck Pain - DERM Skin Color: Normal Skin Problems: None Past Medical History - General Information source: Patient - Social History Smoking Status: Never Smoker Frequency of alcohol use: Occasional Drug Abuse: None Occupation: None Lives with: Spouse/Significant other Family History: Other - Mother with DVT. Patient has suicidal ideation: No Patient has homicidal ideation: No Endocrine Medical History: Reports: Hx Diabetes Mellitus Type 2 Renal/ Medical History: Reports: Hx Kidney Stones, Hx Ovarian Cysts. Denies: Hx Peritoneal Dialysis GI Medical History: Reports: Hx Gastroesophageal Reflux Disease, Hx Colonoscopy Past Surgical History: Reports: Hx Dilation and Curettage, Hx Genitourinary Surgery - D&C, Hx Gynecologic Surgery - Uterine polyps removed, Hx Hysterectomy - Immunizations Hx Diphtheria, Pertussis, Tetanus Vaccination: Yes Vertical Provider Document - CONSTITUTIONAL Agree With Documented VS: Yes Exam Limitations: No Limitations General Appearance: WD/WN, No Apparent Distress - INFECTION CONTROL TRAVEL OUTSIDE OF THE [place] IN LAST 30 DAYS: No - HEENT HEENT: Atraumatic, Normocephalic. negative: Pharyngeal Exudate, Pharyngeal Tenderness, Tympanic Membrane Red, Tympanic Membrane Bulging Mouth Diagram: 1 - Dental decay, tenderness, no gingival abscess, no trismus, no sublingual or submental swelling Notes: Clear rhinorrhea, maxillary sinus tenderness, no facial swelling - NECK Neck: Normal Inspection, Supple. negative: Lymphadenopathy-Left, Lymphadenopathy-Right Notes: No meningismus - RESPIRATORY Respiratory: Breath Sounds Normal, No Respiratory Distress - CARDIOVASCULAR Cardiovascular: Regular Rate, Regular Rhythm, No Murmur - GI/ABDOMEN Gastrointestinal: Abdomen Soft - BACK Back: Normal Inspection - MUSCULOSKELETAL/EXTREMETIES Musculoskeletal/Extremeties: HODA LEONG - NEURO Level of Consciousness: Awake, Alert, Appropriate Motor/Sensory: No Motor Deficit - DERM Integumentary: Warm, Dry, No Rash Course - Re-evaluation Re-evalutation: 12/12/18 15:50 The patient presents with headache without signs of CIGARETTE ROLLER bleed, stroke, infection, or other serious etiology. The patient is neurologically intact. Given the extremely low risk of these diagnoses further testing and evaluation for these possibilities does not appear to be indicated at this time. The patient has been instructed to return if the symptoms worsen or change in any way. Patient does have dental caries and will be placed on antibiotic for possible developing dental infection at this time. No concern for sinusitis at this time as patient is afebrile without any facial erythema or facial swelling, patient symptoms have only been persistent for 1 week. Patient with likely allergic rhinitis at this time. Patient states she had a similar episode last year about this time when the pollen was everywhere outside. - Vital Signs Vital signs: Temp Pulse Resp BP Pulse Ox 98.6 F 85 14 152/78 H 98 12/12/18 13:06 12/12/18 13:06 12/12/18 13:06 12/12/18 13:06 12/12/18 13:06 Discharge - Discharge Clinical Impression: Sinus headache, Pain, dental, Nasal congestion Condition: Stable Disposition: HOME, SELF-CARE Instructions: Antihistamines ([facility]), Clindamycin ([facility]), Headache ([facility]), Nasal Corticosteroid Inhaler ([facility]), Toothache ([facility]) Additional Instructions: Return immediately for any new or worsening symptoms Followup with your primary care provider, call tomorrow to make a followup appointment Use saline nasal spray to help with nasal congestion symptoms You may take Sudafed [id number] to help with congestion symptoms Prescriptions: Cetirizine HCl [Zyrtec 10 mg Tablet] 1 tab PO DAILY #30 tablet Clindamycin HCl [Cleocin 300 mg Capsule] 300 mg PO TID #21 capsule Fluticasone Propionate [Flonase Nasal Bates 50 Mcg/Bates 16 gm] 2 spray NASL DAILY #1 bottle Naproxen [Naprosyn 250 Nmg Tablet] 1 tab PO BID #14 tablet Referrals: TAHIR MCLAIN MD [NO LOCAL MD] - 12/15/18
== END 2018-12-12 14:04 | disposition home or self-care (01) ==
LOC: ER 13:01
DX: R09.81 Nasal congestion (principal); K02.9 Dental caries, unspecified; R06.7 Sneezing; R51 Headache; K08.89 Other specified disorders of teeth and supporting structures; J34.89 Other specified disorders of nose and nasal sinuses; E11.9 Type 2 diabetes mellitus without complications
CPT/HCPCS: 99283; J3490

== ENCOUNTER 2019-08-15 08:27 | Emergency (ER) | payer SELFPAY ==
[2019-08-15 10:14] VITALS: BP 126/62
[2019-08-15] MEDS ORDERED: PSEUDOEPHEDRINE HCL 30 MG TABLET PO ONE (10:18)
[2019-08-15] MEDS ORDERED: LORATADINE 10 MG TABLET PO ONE (10:18)
[2019-08-15] MEDS ORDERED: ACETAMINOPHEN 325 MG TABLET PO ONE (10:18)
--- NOTE | 2019-08-15 10:22 | ER Document Report ---
ED Flu Like - General Chief Complaint: Flu Symptoms Stated Complaint: COUGH,VOMITING Time Seen by Provider: 08/15/19 10:08 Primary Care Provider: TAHIR MCLAIN MD [NO LOCAL MD] - Follow up as needed Mode of Arrival: Ambulatory Information source: Patient Notes: 49-year-old female presented to ED for cough cold congestion runny nose x1 week. She is alert oriented respirations regular nonlabored speaking in full sentences walks with even steady gait. Lungs are clear to auscultation afebrile at this time blood pressure and pulse are within normal limits. Blood pressure is 126/62 temp is 99 even. TRAVEL OUTSIDE OF THE [place] IN LAST 30 DAYS: No - HPI Onset: Last week Timing/Duration: Intermittent Quality of pain: No pain Severity: None Pain Level: Denies Associated symptoms: Chills, Nonproductive cough, Rhinnorhea, Sinus pain/drainage Similar symptoms previously: Yes Recently seen / treated by doctor: No - Related Data Allergies/Adverse Reactions: Penicillins Allergy (Severe, Verified 08/15/19 08:39) Hives ferric carboxymaltose [From Injectafer] Allergy (Mild, Verified 08/15/19 08:39) chest tightness iron dextran complex Adverse Reaction (Mild, Verified 08/15/19 08:39) Home Medications: iron supplement. claritin Past Medical History - General Information source: Patient - Social History Smoking Status: Never Smoker Chew tobacco use (# tins/day): No Frequency of alcohol use: Occasional Drug Abuse: None Lives with: Family Family History: Reviewed & Not Pertinent, Other - Mother with DVT. Patient has suicidal ideation: No Patient has homicidal ideation: No - Past Medical History Cardiac Medical History: Reports: None Pulmonary Medical History: Reports: None EENT Medical History: Reports: None Neurological Medical History: Reports: None Endocrine Medical History: Reports: Hx Diabetes Mellitus Type 2 Renal/ Medical History: Reports: Hx Kidney Stones, Hx Ovarian Cysts GI Medical History: Reports: Hx Gastroesophageal Reflux Disease, Hx Colonoscopy Musculoskeletal Medical History: Reports None Skin Medical History: Reports None Psychiatric Medical History: Reports: None Traumatic Medical History: Reports: None Infectious Medical History: Reports: None Past Surgical History: Reports: Hx Dilation and Curettage, Hx Gynecologic Surgery - Uterine polyps removed, Hx Hysterectomy - Immunizations Hx Diphtheria, Pertussis, Tetanus Vaccination: Yes Review of Systems - Review of Systems Constitutional: Recent illness EENT: Nose discharge, Sinus discharge, Throat pain Cardiovascular: No symptoms reported Respiratory: Cough Gastrointestinal: No symptoms reported Genitourinary: No symptoms reported Female Genitourinary: No symptoms reported Musculoskeletal: No symptoms reported Skin: No symptoms reported Hematologic/Lymphatic: No symptoms reported Neurological/Psychological: No symptoms reported Physical Exam - Vital signs Vitals: BP 110/74 08/15/19 08:27 Interpretation: Normal - General General appearance: Appears well, Alert - HEENT Head: Normocephalic, Atraumatic Eyes: Normal Pupils: PERRL Ears: Normal External canal: Normal Tympanic membrane: Normal Sinus: Normal Nasal: Purulent discharge, Swelling Mouth/Lips: Normal Mucous membranes: Normal Pharynx: Post nasal drainage Neck: Normal - Respiratory Respiratory status: No respiratory distress Chest status: Nontender Breath sounds: Normal, Nonproductive cough Chest palpation: Normal - Cardiovascular Rhythm: Regular Heart sounds: Normal auscultation Murmur: No - Abdominal Inspection: Normal Distension: No distension Bowel sounds: Normal Tenderness: Nontender Organomegaly: No organomegaly - Back Back: Normal, Nontender - Extremities General upper extremity: Normal inspection, Nontender, Normal color, Normal ROM, Normal temperature General lower extremity: Normal inspection, Nontender, Normal color, Normal ROM, Normal temperature, Normal weight bearing. No: Herminio's sign - Neurological Neuro grossly intact: Yes Cognition: Normal Orientation: AAOx4 [place] Coma Scale Eye Opening: Spontaneous [place] Coma Scale Verbal: Oriented [place] Coma Scale Motor: Obeys Commands [place] Coma Scale Total: 15 Speech: Normal Motor strength normal: LUE, RUE, LLE, RLE Sensory: Normal - Psychological Associated symptoms: Normal affect, Normal mood - Skin Skin Temperature: Warm Skin Moisture: Dry Skin Color: Normal Course - Re-evaluation Re-evalutation: 08/15/19 10:27 After performing a Medical Screening Examination, I estimate there is LOW risk for ACUTE CORONARY SYNDROME, RESPIRATORY FAILURE, SEPSIS OR MENINGITIS, thus I consider the discharge disposition reasonable. I have reevaluated this patient multiple times and no significant life threatening changes are noted. The patient and I have discussed the diagnosis and risks, and we agree with discharging home with close follow-up. We also discussed returning to the Emergency Department immediately if new or worsening symptoms occur. We have discussed the symptoms which are most concerning (e.g., changing or worsening pain, trouble swallowing or breathing, neck stiffness, fever) that necessitate immediate return. - Vital Signs Vital signs: Temp Pulse Resp BP Pulse Ox 98.2 F 92 16 126/62 H 99 08/15/19 10:24 08/15/19 10:24 08/15/19 10:24 08/15/19 10:24 08/15/19 10:24 Discharge - Discharge Clinical Impression: URI (upper respiratory infection) Qualifiers: URI type: unspecified viral URI Qualified Code(s): J06.9 - Acute upper respiratory infection, unspecified Condition: Stable Disposition: HOME, SELF-CARE Additional Instructions: UPPER RESPIRATORY ILLNESS: You have a viral infection of the respiratory passages -- a "cold." This common infection causes nasal congestion, drainage, and often sore throat and cough. It is highly contagious. The disease usually lasts about 10 to 14 days. There is no "cure" for the viral infection -- it must run its course. If there is a complication, such as bacterial infection in the nose, sinuses, middle ear, or bronchial tubes, antibiotics may be required. The antibiotics won't affect the virus. Drink plenty of fluids. A humidifier may help. An expectorant medication or decongestant may make you more comfortable. Use acetaminophen or ibuprofen for fever or aches. See the doctor if fever persists over two days, if there is any significant worsening of your symptoms, or if you simply fail to improve as expected. You state you took Mucinex before you came to the emergency room. I have treated you with Claritin 10 mg Sudafed 30 mg and Tylenol 650 mg. These are all dylt-[id number] medications the Sudafed you will have to ask the pharmacist for. You can also use plain Flonase nasal spray which is [id number] 1 spray each nostril twice a day. Salt and soda solution gargles will help to remove the postnasal drip from the back your throat and makes you do not cough as much. You can also suck on cough drops or use Chloraseptic spray for your sore throat. Try to sleep on 2 or 3 pillows while you are sick this will prevent the postnasal drip from going back and clogging up your airway and making you wake up coughing. Salt and soda solution gargle 1 quart of water 1 tablespoon of salt 1 teaspoon of baking soda Mixed 3 ingredients together and boil for 1 minute Placed in a covered quart jar Use 1/2 ounce of cold solution to gargle 3 times a day COUGH-SUPPRESSANT & EXPECTORANT MEDICATION: You are to use a cough medication as needed for relief of symptoms. This medicine is a combination of an expectorant (to make the mucous thinner and more easily "coughed up") and a cough suppressant (to reduce the frequency of coughing). The cough-suppressant medicine is related to narcotics. You may experience mild nausea and sleepiness. Some patients who are very sensitive to narcotics may have stomach pain from this medicine. Taking the medicine with food reduces these side effects. Do not drive or work with machinery until you know how this medicine affects you. The expectorant should have no side effects. Iodine-containing expectorants (such as organidin) should not be taken by persons with active thyroid disease unless approved by your doctor. Call the doctor if you develop shortness of breath, hives, rash, itching, lightheadedness, or severe nausea and vomiting. USE OF ACETAMINOPHEN (Tylenol): Acetaminophen may be taken for pain relief or fever control. It's much safer than aspirin, offering a wider range of "safe" dosages. It is safe during . Some brand names are Tylenol, Panadol, Datril, Anacin 3, Tempra, and Liquiprin. Acetaminophen can be repeated every four hours. The following are maximum recommended dosages: >89 pounds or adults 650 mg to 900 mg Acetaminophen can be repeated every four hours. Maximum dose not to exceed 4000 mg a day. FOLLOW-UP CARE: If you have been referred to a physician for follow-up care, call the physicians office for an appointment as you were instructed or within the next two days. If you experience worsening or a significant change in your symptoms, notify the physician immediately or return to the Emergency Department at any time for re-evaluation. Referrals: TAHIR MCLAIN MD [NO LOCAL MD] - Follow up as needed
== END 2019-08-15 10:24 | disposition home or self-care (01) ==
LOC: ER 08:27
DX: J06.9 Acute upper respiratory infection, unspecified (principal); J34.89 Other specified disorders of nose and nasal sinuses; R05 Cough; R11.10 Vomiting, unspecified; R09.89 Other specified symptoms and signs involving the circulatory and respiratory systems; E11.9 Type 2 diabetes mellitus without complications
CPT/HCPCS: 99283

== ENCOUNTER 2019-09-05 08:38 | Emergency (ER) | payer SELFPAY ==
[2019-09-05 09:08] VITALS: BP 154/86
[2019-09-05] MEDS ORDERED: LIDOCAINE 2% VISCOUS SOLN 20 ML UDCUP PO ONE (10:07)
--- NOTE | 2019-09-05 10:11 | ER Document Report ---
HPI - HPI Time Seen by Provider: 09/05/19 10:07 Pain Level: 4 Notes: Patient is a 49-year-old female who presents to the ED complaining of right upper dental pain #5 for "a while", but with swelling that started x1 day. She has not noticed any obvious abscess or purulent discharge. Patient states that she is still able to eat and drink, but does have a decreased p.o. intake due to the pain. She has tried some [id number] meds with minimal relief. No other concerns or complaints. Denies any headache, fever, head injury, neck pain, hoarseness, drooling, URI, sore throat, chest pain, palpitations, syncope, cough, shortness of breath, wheeze, dyspnea, abdominal pain, nausea/vomiting/diarrhea, urinary retention, dysuria, hematuria, or rash. - ROS Systems Reviewed and Negative: Yes All other systems reviewed and negative - CONSTITUTIONAL Constitutional: DENIES: Fever, Chills - REPRODUCTIVE Reproductive: DENIES: : Past Medical History - Social History Smoking Status: Never Smoker Chew tobacco use (# tins/day): No Frequency of alcohol use: Occasional Drug Abuse: None Family History: Other Patient has suicidal ideation: No Patient has homicidal ideation: No - Past Medical History Cardiac Medical History: Denies: Hx Coronary Artery Disease, Hx Heart Attack, Hx Hypertension Pulmonary Medical History: Denies: Hx Asthma, Hx Bronchitis, Hx COPD, Hx Pneumonia Neurological Medical History: Denies: Hx Cerebrovascular Accident, Hx Seizures Endocrine Medical History: Reports: Hx Diabetes Mellitus Type 2 Renal/ Medical History: Reports: Hx Kidney Stones, Hx Ovarian Cysts. Denies: Hx Peritoneal Dialysis GI Medical History: Reports: Hx Gastroesophageal Reflux Disease, Hx Colonoscopy Past Surgical History: Reports: Hx Dilation and Curettage, Hx Genitourinary Surgery - D&C, Hx Gynecologic Surgery - Uterine polyps removed, Hx Hysterectomy - Immunizations Hx Diphtheria, Pertussis, Tetanus Vaccination: Yes Vertical Provider Document - CONSTITUTIONAL Agree With Documented VS: Yes Notes: PHYSICAL EXAMINATION: GENERAL: Well-appearing, well-nourished and in no acute distress. HEAD: Atraumatic, normocephalic. EYES: Pupils equal round and reactive to light, extraocular movements intact, sclera anicteric, conjunctiva are normal. ENT: EAC clear b/l. TM's intact b/l without erythema, fluid, or perforation. Nares patent and without discharge. oropharynx clear without exudates. No tonsilar hypertrophy or erythema. Moist mucous membranes. No sinus tenderness. Uvula midline. No palatine shift. No tongue protrusion. No respiratory compromise. Mouth: Poor dentition. + mild gingivitis. No obvious abscess or discharge noted. + very mild rt upper facial swelling. + tenderness to tooth #5. NECK: Normal range of motion, supple without lymphadenopathy. No rigidity/m eningismus. LUNGS: Breath sounds clear to auscultation bilaterally and equal. No wheezes rales or rhonchi. HEART: Regular rate and rhythm without murmurs, rubs, gallops. NEUROLOGICAL: Cranial nerves grossly intact. Normal speech, normal gait. PSYCH: Normal mood, normal affect. SKIN: Warm, Dry, normal turgor, no rashes or lesions noted. - INFECTION CONTROL TRAVEL OUTSIDE OF THE [place] IN LAST 30 DAYS: No Course - Re-evaluation Re-evalutation: 09/05/19 10:12 Patient is an afebrile, well-hydrated, 49-year-old female who presents to the ED with dental pain, suspect nerve root etiology versus infection. Vitals are acceptable. PE is otherwise unremarkable. No I&D, labs, or imaging warranted at this time based on H&P. Viscous lidocaine dispensed today. I will send her home with a prescription for cleocin. Low suspicion for any meningitis, sepsis, peritonsillar/pharyngeal abscess, respiratory compromise, Evan's, temporal arteritis, or other emergent systemic condition at this time. Patient is aware this condition can change from initial presentation and she needs to monitor symptoms closely. Conservative measures otherwise for symptoms. Call to schedule an appointment with a dentist for further evaluation and management. Recheck with your PCM this week as well. Return to the ED with any worsening/concerning symptoms otherwise as reviewed in discharge. Patient is in agreement. - Vital Signs Vital signs: Temp Pulse Resp BP Pulse Ox 98.7 F 94 20 154/86 H 97 09/05/19 09:07 09/05/19 09:07 09/05/19 09:07 09/05/19 09:07 09/05/19 09:07 Discharge - Discharge Clinical Impression: Pain, dental Condition: Stable Disposition: HOME, SELF-CARE Instructions: Clindamycin ([facility]), Toothache ([facility]) Additional Instructions: [place] and floss twice daily Maintain fluid intake Take antibiotics as directed Mouthwash, salt water gargles, peroxide rinse as needed Tylenol/ibuprofen as needed Recheck with PCM this week Call and schedule an appointment with your dentist for further evaluation Return to the ED with any worsening symptoms and/or development of fever, headache, facial swelling, swelling of lips/tongue/throat, trouble swallowing, drooling, hoarseness, neck pain/stiffness, chest pain, palpitations, syncope, shortness of breath, trouble breathing, abdominal pain, n/v/d, numbness/tingling, or other worsening symptoms that are concerning to you. Prescriptions: Clindamycin HCl [Cleocin 300 mg Capsule] 300 mg PO TID #30 capsule Forms: Elevated Blood Pressure Referrals: TAHIR MCLAIN MD [Primary Care Provider] - Follow up as needed [facility] [Provider Group] - Follow up as needed
== END 2019-09-05 10:35 | disposition home or self-care (01) ==
LOC: ER 08:38
DX: K08.89 Other specified disorders of teeth and supporting structures (principal); R63.0 Anorexia; E11.9 Type 2 diabetes mellitus without complications
CPT/HCPCS: 99283; J3490

== ENCOUNTER 2019-12-04 02:12 | Emergency (ER) | payer BC ==
[2019-12-04] MEDS ORDERED: NORMAL SALINE 1000 ML 1,000 ML IV ONE ×2 (02:28→04:33)
[2019-12-04 03:08] LABS: APPEARANCE,URINE CLEAR; BILIRUBIN,URINE NEGATIVE (NEGATIVE); COLOR,URINE YELLOW; GLUCOSE, URINE >=500 mg/dL (NEGATIVE); KETONES,URINE NEGATIVE (NEGATIVE); LEUKOCYTE ESTERASE,URINE NEGATIVE (NEGATIVE); NITRITE,URINE NEGATIVE (NEGATIVE); PROTEIN,URINE 30 mg/dL (NEGATIVE); URINE SPECIFIC GRAVITY 1.035; UROBILINOGEN,URINE NEGATIVE mg/dL (<2.0)
--- NOTE | 2019-12-04 03:19 | ER Document Report ---
Entered by JAEL SALAS SCRIBE 12/04/19 0245 Acting as scribe for:JEAN PAUL ALEXANDRE IV, MD ED General - General Chief Complaint: High Blood Sugar Stated Complaint: HIGH BLOOD SUGAR Time Seen by Provider: 12/04/19 02:40 Primary Care Provider: TAHIR MCLAIN MD [Primary Care Provider] - Follow up as needed Mode of Arrival: Ambulatory Information source: Patient Notes: This 49 year old female patient with a history of type 2 diabetes presents to the ED today with complaints of an elevated BGL. Patient states that she hasn't been feeling well and has been extremely thirsty for the past couple days, which prompted her to check her BGL which was 453 at home tonight. Patient reports that she hasn't been taking her diabetic medication, Farxiga, this past year because her BGL has been controlled. Patient states that she has been gaining weight recently and that that may contribute to her elevated BGL. Patient also reports urinary symptoms including vaginal itching, burning with urination, and urinary frequency more than usual. Patient states that she thinks she may have a yeast infection. TRAVEL OUTSIDE OF THE [place] IN LAST 30 DAYS: No - Related Data Allergies/Adverse Reactions: Penicillins Allergy (Severe, Verified 12/04/19 02:18) Hives ferric carboxymaltose [From Injectafer] Allergy (Mild, Verified 12/04/19 02:18) chest tightness iron dextran complex Adverse Reaction (Mild, Verified 12/04/19 02:18) Home Medications: IRON PILLS Past Medical History - General Information source: Patient - Social History Smoking Status: Never Smoker Cigarette use (# per day): No Chew tobacco use (# tins/day): No Smoking Education Provided: No Frequency of alcohol use: Occasional Drug Abuse: None Family History: Reviewed & Not Pertinent Patient has suicidal ideation: No Patient has homicidal ideation: No Endocrine Medical History: Reports: Hx Diabetes Mellitus Type 2 Renal/ Medical History: Reports: Hx Kidney Stones, Hx Ovarian Cysts GI Medical History: Reports: Hx Gastroesophageal Reflux Disease, Hx Colonoscopy Past Surgical History: Reports: Hx Dilation and Curettage, Hx Gynecologic Surgery - Uterine polyps removed, Hx Hysterectomy - Immunizations Hx Diphtheria, Pertussis, Tetanus Vaccination: Yes Review of Systems - Review of Systems Constitutional: See HPI, Other - Elevated BGL, Weight gain EENT: See HPI, Other - Polydipsia Cardiovascular: No symptoms reported Respiratory: No symptoms reported Gastrointestinal: No symptoms reported Genitourinary: See HPI, Burning, Frequency Female Genitourinary: See HPI, Other - Itching Musculoskeletal: No symptoms reported Skin: No symptoms reported Hematologic/Lymphatic: No symptoms reported Neurological/Psychological: No symptoms reported -: Yes All other systems reviewed and negative Physical Exam - Vital signs Vitals: Temp Pulse Resp BP Pulse Ox 98.0 F 100 22 H 154/85 H 96 12/04/19 02:16 12/04/19 02:16 12/04/19 02:16 12/04/19 02:16 12/04/19 02:16 - General General appearance: Alert In distress: None - HEENT Head: Normocephalic, Atraumatic Eyes: Normal Pupils: PERRL - Respiratory Respiratory status: No respiratory distress Chest status: Nontender Breath sounds: Normal Chest palpation: Normal - Cardiovascular Rhythm: Regular Heart sounds: Normal auscultation Murmur: No Friction rub: No Gallop: None auscultated - Abdominal Inspection: Normal Distension: No distension Bowel sounds: Normal Tenderness: Nontender - Abdomen soft Organomegaly: No organomegaly - Genitourinary Notes: Deferred by patient. - Back Back: Normal, Nontender - Extremities General upper extremity: Normal inspection General lower extremity: Normal inspection - Neurological Neuro grossly intact: Yes - Psychological Associated symptoms: Normal affect, Normal mood - Skin Skin Temperature: Warm Skin Moisture: Dry Skin Color: Normal Course - Re-evaluation Re-evalutation: 12/04/19 05:38 Results of ED MSE discussed with patient. All questions were answered prior to discharge. Patient states that is going to be 2 months before she can get in with her regular provider to restart her Farxiga due to the COVID 19 situation. This md agreed to give pt rx for Farxiga 5 mg qam x 30 days with 1 refill to help her until she can see her regular doctor. Emergency signs and symptoms, reasons to return to the emergency department discussed with patient. - Vital Signs Vital signs: Temp Pulse Resp BP Pulse Ox 97.6 F 90 22 H 141/78 H 96 12/04/19 04:08 12/04/19 04:08 12/04/19 04:08 12/04/19 04:08 12/04/19 04:08 - Laboratory Result Diagrams: 12/04/19 03:47 12/04/19 03:47 Laboratory results interpreted by me: 12/04/19 12/04/19 12/04/19 02:40 03:47 05:24 Sodium 134.0 L Chloride 97 L Glucose 467 H* POC Glucose 366 H Alkaline Phosphatase 141 H Urine Protein 30 H Urine Glucose (UA) >=500 H Discharge - Discharge Clinical Impression: Hyperglycemia, Yeast infection Condition: Good Disposition: HOME, SELF-CARE Additional Instructions: Return to the Emergency Department without delay if any worse. HOME CARE INSTRUCTIONS & INFORMATION: Thank you for choosing us for your medical needs. We hope you're satisfied with the care you received. After you leave, you must properly care for your problem and, at the same time, observe its progress. Any condition can change. Some illnesses can change rapidly over hours or days. If your condition worsens, return to the Emergency Department or see your physician promptly. ABOUT YOUR X-RAYS AND EKG'S: If you had an EKG or X-rays taken, they have been read by the Emergency Physician. The X-rays and EKG's will also be read by a Radiologist or [employer] within 24 hours. If discrepancies are noted, you will be notified by telephone. Please be certain the ED has a correct telephone number & address where you can be reached. Also, realize that some fractures or abnormalities do not show up on initial X-rays. If your symptoms continue, see your physician. ABOUT YOUR LABORATORY TEST: If you had laboratory tests, the results have been reviewed by the Emergency Physician. Some test results (for example cultures) may not be available for several days. You will be contacted if any test result shows you need additional treatment. Please be certain the ED has a correct telephone number and address where you can be reached. ABOUT YOUR MEDICATIONS: You will receive instructions on how to take your medicine on the prescription label you receive. Additional information may be provided by the Pharmacy. If you have questions afterwards, call the ED for clarification or further instructions. Some prescribed medications may cause drowsiness. Do not perform tasks such as driving a car or operating machinery without consulting your Pharmacist. If you feel you need a refill of pain medication, your condition will need re-evaluation. Please do not call for a refill of any medication. ABOUT YOUR SIGNATURE: Signature of this document acknowledges to followin. Understanding that you received emergency treatment and that you may be released before al medical problems are known or treated. Please be certain the ED has a correct phone number & address where you can be reached. 2. Acknowledgement that you will arrange for follow-up care as recommended. 3. Authorization for the Emergency Physician to provide information to your follow-up Physician in order to maximize your care. AT ANY TIME, IF YOUR SYMPTOMS CHANGE SIGNIFICANTLY OR WORSEN OR YOU DEVELOP NEW SYMPTOMS, RETURN TO THE EMERGENCY DEPARTMENT IMMEDIATELY FOR RE-EVALUATION. OUR GOAL IS TO PROVIDE EXCELLENT MEDICAL CARE! WE HOPE THAT WE HAVE MET YOUR EXPECTATIONS DURING YOUR EMERGENCY DEPARTMENT VISIT AND THAT YOU FEEL YOU HAVE RECEIVED EXCELLENT CARE! Prescriptions: Dapagliflozin Propanediol [Farxiga] 5 mg PO QAM 30 Days #30 tablet Referrals: TAHIR MCLAIN MD [Primary Care Provider] - Follow up as needed I personally performed the services described in the documentation, reviewed and edited the documentation which was dictated to the scribe in my presence, and it accurately records my words and actions.
[2019-12-04 03:59] LABS: ABSOLUTE BASOPHILS # (AUTO) 0.1 10^3/uL (0.0-0.2); ABSOLUTE EOSINOPHILS # (AUTO) 0.1 10^3/uL (0.0-0.6); ABSOLUTE LYMPHOCYTES (AUTO) 1.6 10^3/uL (0.5-4.7); ABSOLUTE MONOCYTES (AUTO) 0.6 10^3/uL (0.1-1.4); ABSOLUTE NEUT (AUTO) 4.2 10^3/uL (1.7-8.2); BASOPHILS % (AUTO) 1.1 % (0-2); EOSINOPHILS % (AUTO) 1.1 % (0-6); HEMATOCRIT 40.6 % (36.0-47.0); HEMOGLOBIN 13.5 g/dL (12.0-15.5); LYMPHOCYTES % (AUTO) 23.7 % (13-45); MEAN CORPUSCULAR HEMOGLOBIN 28.2 pg (27.0-33.4); MEAN CORPUSCULAR HGB CONC 33.3 g/dL (32.0-36.0); MEAN CORPUSCULAR VOLUME 85 fl (80-97); MONOCYTES % (AUTO) 9.9 % (3-13); PLATELET COUNT 264 10^3/uL (150-450); RED CELL DISTRIBUTION WIDTH 13.9 % (11.5-14.0); SEGMENTED NEUTROPHILS % (AUTO) 64.2 % (42-78); TOTAL CELLS COUNTED % (AUTO) 100 %; WHITE BLOOD COUNT 6.6 10^3/uL (4.0-10.5)
[2019-12-04 04:19] LABS: ALBUMIN 4.6 g/dL (3.5-5.0); ALKALINE PHOSPHATASE 141 U/L (38-126); ANION GAP 12 (5-19); ASPARTATE AMINO TRANSFERASE 18 U/L (14-36); BILIRUBIN,TOTAL 0.6 mg/dL (0.2-1.3); BLOOD UREA NITROGEN 12 mg/dL (7-20); CALCIUM 9.8 mg/dL (8.4-10.2); CARBON DIOXIDE 25 mmol/L (22-30); CHLORIDE 97 mmol/L (98-107); POTASSIUM 4.5 mmol/L (3.6-5.0); TOTAL PROTEIN 7.8 g/dL (6.3-8.2)
[2019-12-04 04:30] LABS: GLUCOSE 467 mg/dL (75-110)
[2019-12-04] MEDS ORDERED: INSULIN REG, HUMAN 100 UNIT/ML 3 ML VIAL (PYX) IV ONE (04:32)
[2019-12-04] MEDS ORDERED: FLUCONAZOLE 100 MG TABLET PO ONE (05:25)
[2019-12-04 06:04] VITALS: BP 116/58
== END 2019-12-04 06:18 | disposition home or self-care (01) ==
LOC: ER 02:12
DX: E11.65 Type 2 diabetes mellitus with hyperglycemia (principal); B37.49 Other urogenital candidiasis; R30.0 Dysuria; Z88.0 Allergy status to penicillin; Z91.19 Patient's noncompliance with other medical treatment and regimen; Z87.442 Personal history of urinary calculi; Z90.710 Acquired absence of both cervix and uterus
CPT/HCPCS: 99284; 96360; 96361; 36415; 82962; 85025; 80053; 81001; J1815; J7030